=== PATIENT | female | born 1965 | race Caucasian/White ===

== ENCOUNTER → 2016-10-21 | Outpatient (CLI) | payer OTHER ==
--- NOTE | 2016-10-21 13:58 | RAD ---
DATE: 10/21/2016. EXAM: DIGITAL DIAGNOSTIC RT, BREAST RIGHT HISTORY: Palpable lump in the right breast. COMPARISON: 02/27/2016. This study was interpreted with the benefit of Computerized Aided Detection (CAD). FINDINGS: CC and MLO views of the right breast were obtained. A BB marker was placed at the area of palpable abnormality of the right breast which corresponds to the approximate 6:00 location. The right breast is heterogeneously dense, limiting the sensitivity of mammography. The overall parenchymal pattern is stable. No mass or malignant appearing microcalcifications are seen. Impression: No mammographic features suspicious for malignancy are seen. However, since the patient has a palpable abnormality, further evaluation of the right breast with ultrasound is recommended. Right breast ultrasound: Sonographic interrogation of the area of palpable abnormality of the right breast was performed. There is a tiny cyst at the 6:00 location measuring 6 mm x 4 mm corresponding to the palpable abnormality. No other abnormality is detected. IMPRESSION: Small cyst 6:00 location of the right breast, corresponding to the palpable abnormality. No other abnormality is identified. BI-RADS CATEGORY: 2 BENIGN FINDING(S) RECOMMENDED FOLLOW-UP: 12M 12 MONTH FOLLOW-UP PQRS compliance statement: Patient information was entered into a reminder system with a target due date for the next mammogram. Mammography is a sensitive method for finding small breast cancers, but it does not detect them all and is not a substitute for careful clinical examination. A negative mammogram does not negate a clinically suspicious finding and should not result in delay in biopsying a clinically suspicious abnormality. "Our facility is accredited by the [employer] Mammography Program."
== END | disposition home or self-care (01) ==
LOC: MAMMO 12:52
PROVIDERS: ATTEND Nurse Practitioner Family
DX: N64.4 Mastodynia (principal); N63 Unspecified lump in breast
CPT/HCPCS: 76641; G0206; 77065

== ENCOUNTER → 2020-01-30 | Outpatient (CLI) | payer OTHER ==
--- NOTE | 2020-01-30 09:55 | RAD ---
EXAM: Maxillofacial bone CT without contrast. HISTORY: Sinusitis. TECHNIQUE: Computed tomographic images of the maxillofacial bones were obtained without contrast. *One or more of the following individualized dose reduction techniques were utilized for this examination: 1. Automated exposure control. 2. Adjustment of the mA and/or kV according to patient size. 3. Use of iterative reconstruction technique. COMPARISON: None. FINDINGS: There are findings consistent with left maxillary antrostomy/uncinectomy surgery and left middle turbinate resection. The left maxillary sinus is relatively decreased in size with associated wall thickening and inward wall deviation due to the sequela of chronic sinusitis/silent sinus syndrome. There is mild left maxillary sinus mucosal thickening. There is a bony defect within the anterior lateral sinus wall due to prior surgery or dehiscence. There is dense calcification associated with a suspected retention cyst or mucosal thickening within the left maxillary sinus, suggesting a chronic fungal etiology. There is minimal right maxillary sinus mucosal thickening with a tiny mucous retention cyst. There is rightward nasal septal deviation. There is obstruction of the right ostiomeatal unit. The frontal sinuses are clear. The sphenoid sinus is clear. The mastoid air cells are clear. The temporal minimal joints are intact. There is evidence of lens surgery. The visualized portions of the calvarium are unremarkable. There is a tiny calcification along the roof of third ventricle which is likely due to choroid. There is no mass effect or midline shift. There is no hydrocephalus. There is facet arthropathy involving the visualized cervical spine. IMPRESSION: 1. Findings consistent with prior left maxillary antrostomy/uncinectomy surgery and middle turbinate resection. There is deformity of the left maxillary sinus with mucosal thickening and dense calcification due to the sequela of chronic sinusitis/silent sinus syndrome. 2. Minimal right maxillary sinus mucosal thickening. There is obstruction of the right ostiomeatal unit. 3. Mild rightward nasal septal deviation. Electronically signed by: Esha Marcos MD (01/30/2020 9:52 AM) [id number]
== END | disposition home or self-care (01) ==
LOC: CT 09:12
PROVIDERS: ATTEND Registered Nurse
DX: J34.2 Deviated nasal septum (principal); J34.89 Other specified disorders of nose and nasal sinuses; J32.0 Chronic maxillary sinusitis; J34.1 Cyst and mucocele of nose and nasal sinus; M12.88 Other specific arthropathies, not elsewhere classified, other specified site
CPT/HCPCS: 70486

== ENCOUNTER → 2020-07-16 | Outpatient (CLI) | payer OTHER ==
--- NOTE | 2020-07-16 16:09 | KCIC ---
STUDY: MRI of the left shoulder without contrast INDICATION: Left shoulder pain. COMPARISON: Left shoulder radiographs 07/04/2020 TECHNIQUE: Multiplanar MR imaging of the left shoulder performed without the use of intravenous or intra-articular contrast. FINDINGS: AC joint: Mild AC joint arthrosis. No significant fluid distention of the subacromial subdeltoid bursa. Rotator cuff: No high-grade or full-thickness rotator cuff tear. Mild supraspinatus tendinosis. Normal rotator cuff muscular bulk and signal. Labrum: Suspected degenerative tearing at the posterior/superior labrum such as seen on image 11 series 3. Long head biceps tendon: Intact and normally located. Cartilage: No full-thickness chondral defect. Bones: No acute fracture. The lucent focus described on the comparison radiographs corresponds to benign cystic change at the lesser tuberosity. Miscellaneous: Edema-like signal beneath the axillary pouch, image 8 series 6. Edema-like signal at the rotator interval as well. Small shoulder joint effusion with preferential distention of the subscapularis recess. Fluid mildly distends the long head biceps tendon sheath. Several axillary lymph nodes with reactive morphology. Impression: 1. No high-grade or full-thickness rotator cuff tear. Intact and normally located long head biceps tendon. 2. Suspected degenerative type tearing at the posterior/superior labrum. 3. Edema-like signal at the rotator interval and beneath the axillary recess. Though nonspecific, these findings can be seen with adhesive capsulitis. 4. Small shoulder joint effusion. Small volume fluid distention of the long head biceps tendon could be physiologic from communication with the shoulder joint or indicate mild tenosynovitis. Electronically signed by: FRANCIA PLATA MD (07/16/2020 4:06 PM) [id number]
== END ==
LOC: KCIC MRI 13:40
PROVIDERS: ATTEND Physician Assistant Medical
DX: M25.412 Effusion, left shoulder (principal); M77.8 Other enthesopathies, not elsewhere classified
CPT/HCPCS: 73221